=== PATIENT | male | born 1995 | race African-American/Black ===

== ENCOUNTER 2016-05-19 18:49 | Emergency (ER) | payer OTHER ==
[~2016-05-19] VITALS: Ht 188 cm; Wt 72.6 kg
[2016-05-19 18:48] VITALS: BP 128/70
[~2016-05-19 18:49] MED LIST: NKM
[2016-05-19] MEDS ORDERED: ZOFRAN ODT4 MG ORAL (18:53)
[2016-05-19] MEDS ORDERED: PEPCID20 MG ORAL (18:53)
--- NOTE | 2016-05-19 19:00 | Emergency Room Report ---
History of Present Illness General Chief Complaint: Medical Clearance Source: Patient Present Illness HPI The patient is brought in by EMS from the half-way. He states that when he gets anxious he vomits. He vomited today and felt dizzy and some shortness of breath. This is now resolved coming into the hospital. The patient states that when he does get anxious he gets dizzy and also nauseated. He states sometimes he has to lay down to feel better. He has not been evaluated by a doctor for this. He denies any chest pain or abdominal pain. The patient admits to [facility]. He denies drinking alcohol or any drugs recently. No hematemesis, melena. No fevers. No SI or HI. No dysuria, rashes, extremity pain. He does complain of some nasal congestion. Patient was arrested for soliciting an undercover prostitute. Allergies: Coded Allergies: No Known Allergies (Unverified , 05/19/16) Patient History Past Medical History: see triage record Social History: Reports: drug use Social History Narrative in custody Reviewed Nursing Documentation: PMH: Agreed, PSxH: Agreed Nursing Documentation-PMH Past Medical History: No Stated History Review of Systems All Other Systems: negative except mentioned in HPI Physical Exam Vital Signs Date Time Temp Pulse Resp B/P Pulse Ox O2 Delivery O2 Flow Rate FiO2 05/19/16 18:44 98.2 78 18 128/70 98 05/19/16 18:48 Room Air Sp02 EP Interpretation: reviewed, normal General Appearance: well appearing, no apparent distress, GCS 15 Head: normocephalic, atraumatic Eyes: bilateral eye PERRL, bilateral eye normal inspection ENT: hearing grossly normal, normal voice, moist mucus membranes Neck: full range of motion, supple Respiratory: chest non-tender, lungs clear, normal breath sounds, no respiratory distress, speaking full sentences Cardiovascular #1: regular rate, rhythm Gastrointestinal: non tender, soft, no mass, non-distended, scaphoid Musculoskeletal: back normal, digits/nails normal, gait/station normal, normal range of motion, no calf tenderness Neurologic: alert, oriented x3, motor strength/tone normal, normal gait, grossly normal Psychiatric: no suicidal/homicidal ideation, anxious, other - slightly pressured Skin: no rash Medical Decision Making Diagnostic Impression: Primary Impression: Vomiting Qualified Codes: F50.89 - Other specified eating disorder Additional Impressions: Nasal congestion Anxiety ER Course Patient presents with vomiting from half-way. Ddx: viral syndrome, psychogenic vomiting related to anxiety, gastritis, gastroenteritis, food poisoning amongst others. His VS are stable and gives a history of prior episodes of vomiting with anxiety. Congestion suggests viral syndrome. No medical emergency at this time. Treated with zofan, pepcid and benadry. The latter might aid in treating anxiety. Patient stable for booking and outpatient treatment. Last Vital Signs Date Time Temp Pulse Resp B/P Pulse Ox O2 Delivery O2 Flow Rate FiO2 05/19/16 18:48 98.2 79 18 128/70 98 Room Air Status: improved Disposition: D/C TO LAW [facility] IN CUST Condition: Improved Scripts Ondansetron Odt* (ZOFRAN ODT*) 4 Mg Tab.rapdis 4 MG ORAL Q8H Y for Nausea & Vomiting, #6 TAB 0 Refills Prov: Mohan Celis M.D. 05/19/16 Famotidine (PEPCID) 20 Mg Tablet 20 MG ORAL DAILY, #7 TAB 0 Refills Prov: Mohan Celis M.D. 05/19/16 Departure Forms: Correction Clearance Patient Instructions: Nausea and Vomiting, Adult, [id number] Additional Instructions: Clear liquids. Follow up with your own MD. Mohan Celis M.D. May 19, 2016 19:00
[2016-05-19 19:16] VITALS: BP 128/70
== END 2016-05-19 19:16 ==
LOC: EDBD 18:49 → EMR 18:58
DX: R11.10 Vomiting, unspecified (principal); R09.81 Nasal congestion; F41.9 Anxiety disorder, unspecified; F19.90 Other psychoactive substance use, unspecified, uncomplicated
CPT/HCPCS: 99284